=== PATIENT | male | born 1965 ===

== ENCOUNTER 2019-03-04 15:33 | Emergency (ER) | payer SELFPAY ==
--- NOTE | 2019-03-04 15:40 | NUR.NOTE ---
Nursing Note: pt has had on and off chest pain for the past week. pt describes pain as pressure on the left side pain is brought about by stress pain 12/30 pt states no cardiac history however does have anxiety
[2019-03-04 15:42] VITALS: BP 179/94; PULSE 78; RESP 16; TEMP 37; O2SAT 98
--- NOTE | 2019-03-04 16:08 | ED.GENADUL_ITS ---
Discharge Plan Disposition Patient Disposition: AGAINST MEDICAL ADVICE Condition: Stable Discharge Details Chief Complaint: Chest Pain Clinical Impression: Chest pain Primary Care Provider: Romain Romeo ED Provider: Tima Hopkins Discharge Data Discharge Date/Time-TO BE ENTERED AT DEPARTURE: 03/04/19 17:30 Medical Decision Making 53 yo male who denies chronic medical problems comes in with cc of intermittetn chest tightness and anxious feeling for the past few days. 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 He denies any radiation of pain, no diaphoresis or n/v. Today he was having a stressful discussion about his kids and this brought on the tightness in his anterior chest and now has no pain but still feels and appears anxious. no recent surgeries or immobilization. His heart score is 2, will send troponin. No tearing back pain so doubt dissection and wells score is low will send d d nadia. Has clear lungs on exam and no fevers/cough so doubt ptx or pna. I suspet anxiety is contributing to hsi symptoms, declines any meds for this at this time this patient chose to leave prior to results of second troponin. He has decision making capacity and understands risks of leaving including and permanent disability and accepts these risks. He will return if he changes his mind, he is leaving AMA Differential Diagnosis acs, pe, dissecton, anxiety Lab Data Lab results reviewed: Yes I reviewed the patient's lab results. ECG Data Attestation: I personally reviewed and interpreted this ECG (s) as follows: Prior ECG tracings: not available for review Interpretation: sinus rhythm, rate of 79, pr 150, no acute st t wave ischemic findings 2nd ekg sinus rhythm, rate of 60, no acute st t wave ischemic changes HPI General Mode of arrival: ambulatory . Date/Time Provider Initiated Documentation: 03/04/19 15:49 . Limitations to Documentation: no limitations . Information obtained by: patient . History of Present Illness 53 year old M presents to the emergency department with the chief complaint of chest pain, described as moderate, Quality is described as aching, and it has been constant. No relieving factors improve symptom(s), No exacerbating factors reported . Patient did receive the following treatments prior to arrival, none Related Data Allergies Allergy/AdvReac Type Severity Reaction Status Date / Time No Known Allergies Allergy Unverified 03/04/19 15:45 General Stated Complaint: Chest Pain YOGESH: 3 Review of Systems Review of Systems All systems reviewed & are unremarkable except as noted in HPI and below Constitutional Denies chills, Denies fever(s) and Denies weakness Cardiovascular Denies dyspnea Respiratory Denies cough and Denies dyspnea Gastrointestinal Denies abdominal pain, Denies nausea and Denies vomiting Integumentary/Breasts Denies rash Neurologic Denies weakness Exam Const General: anxious Orientation: alert HENMT Head: normal to inspection Ears: external ears normal General nose exam: external nose normal Mouth: moist mucous membranes Eyes General: appearance normal, both eyes and all related structures Neck Neck: normal visual inspection Resp Effort & Inspection: normal respiratory effort and able to speak in complete sentences Cardio Rate: regular rate Skin General skin exam: no rashes or lesions noted Neuro General: alert and oriented x3 Extrem General: normal to inspection Psych Mental Status: mental status grossly normal Course Vital Signs Temperature 37.0 C 03/04/19 15:42 Pulse 78 03/04/19 15:42 Respiratory Rate 16 03/04/19 15:42 Blood Pressure 179/94 H 03/04/19 15:42 Pulse Oximetry 98 03/04/19 15:42 Temperature 37.0 C 03/04/19 15:42 Temperature Source Skin 03/04/19 15:42 Pulse 78 03/04/19 15:42 Respiratory Rate 16 03/04/19 15:42 Blood Pressure 179/94 H 03/04/19 15:42 Blood Pressure Position Sitting 03/04/19 15:42 Pulse Oximetry 98 03/04/19 15:42 Oxygen Delivery Method Room Air 03/04/19 15:42 Oxygen Flow Rate 0 03/04/19 15:42 Pain Level 6 03/04/19 15:42
[2019-03-04] MEDS: Aspirin 81 MG CHEW 324 MG CH (16:11)
[2019-03-04 16:16] LABS: Abs Immature Grans 0.01 k/cumm (0.0-0.09); Absolute Basophil Count 0.01 k/cumm (0.0-0.2); Absolute Eosinophil Count 0.07 k/cumm (0.0-0.7); Absolute Lymphocyte Count 1.86 k/cumm (1.2-3.4); Absolute Neutrophil Count 4.92 k/cumm (1.2-6.7); Basophils % 0.1; Eosinophils % 0.9; HCT 46.4 % (40.0-50.0); HGB 16.1 g/dL (13.5-17.5); Immature Grans % 0.1; Lymphocytes % 24.9; Mean Corp. HGB Concentration 34.7 g/dL (32.0-36.0); Mean Corpuscular Hemoglobin 30.8 pg (27.0-33.0); Mean Corpuscular Volume 88.7 fL (80-95); Mean Platelet Volume 12.9 fL (8.0-11.0); Platelet Count 167 x1000/uL (130-400); RBC 5.23 m/cumm (4.50-6.00); RBC Distribution Width 13.3 % (11.8-14.1); White Blood Cell Count 7.47 k/cumm (4.4-10.8)
[2019-03-04 16:33] LABS: Magnesium 1.9 mg/dL (1.8-2.4)
[2019-03-04 16:38] LABS: PTT Activated 25.4 sec (21.0-31.4); Prothrombin Time 10.4 sec (9.3-11.0); Troponin I < 0.05 ng/mL (0.00-0.06)
[2019-03-04 16:57] LABS: D-Dimer 179 ng/mlFEU (<500)
[2019-03-04 19:23] LABS: Troponin I < 0.05 ng/mL (0.00-0.06)
== END 2019-03-04 17:30 | disposition left against medical advice (07) ==
PROVIDERS: Emergency Provider Emergency Medicine; PCP Emergency Medicine
DX: R07.9 Chest pain, unspecified (principal); F41.9 Anxiety disorder, unspecified; Z53.29 Procedure and treatment not carried out because of patient's decision for other reasons
CPT/HCPCS: 36415; 93005; 99284; 83735; 84484; 85025; 85379; 85610; 85730; 93010; J3490